=== PATIENT | female | born 1980 | race Caucasian/White ===

== ENCOUNTER 2020-02-21 16:28 | Outpatient (CLI) | payer OTHER, SELFPAY ==
--- NOTE | ~2020-02-21 | US_ITS ---
EXAMINATION: US pelvic complete w TV EXAM DATE: 02/21/2020 17:08 INDICATION: Right lower quadrant pain. TECHNIQUE: Pelvic transabdominal and transvaginal sonogram was performed. There are multiple graysca le and Doppler images available for interpretation. Comparison is made to prior examination from 11/25. FINDINGS: Uterus measures 12.8 x 3.9 x 6.6 cm, and is morphologically normal. Endometrial stripe me asures 11 mm, within normal limits. There are nabothian cysts. There is no free pelvic fluid. Right adnexa: The ovary measures 3.0 x 2.3 x 3.2 cm and is morphologically normal. Ovarian vascular f low confirmed. Left adnexa: The ovary measures 2.3 x 2.5 x 2.7 cm and is morphologically normal. Ovarian vascular fl ow confirmed. IMPRESSION: 1. Unremarkable pelvic ultrasound exam. Reviewed, dictated and finalized at location A.
== END 2020-02-21 16:29 | disposition home or self-care (01) ==
LOC: ANHIMG 16:34
PROVIDERS: PCP Family Medicine; Visit Provider Physician Assistant Medical
DX: R10.31 Right lower quadrant pain (principal)
CPT/HCPCS: 76830; 76856

== ENCOUNTER 2021-01-24 14:28 | Outpatient (CLI) | payer OTHER, SELFPAY ==
--- NOTE | 2021-01-24 16:41 | WPDPFTINT ---
PFT Interpretation This is a pulmonary function test with spirometry, plethysmography and diffusing capacity. The test was performed and results interpreted in accordance with the 2019 and 2005 ATS/ERS Task Force guidelines respectively using the Global Lung Function Initiative-2012 reference equations. Patient demonstrated good effort and cooperation. Reproducibility criteria were met. The quality of the spirometry maneuver was Grade A. Findings: Spirometry: The contour the inspiratory and expiratory flow tracing are normal. The FVC is 3.01 L, 92% predicted. The FEV1 is 2.54 L, 94% predicted. The FEV1: FVC ratio was 84%. Plethysmography: The total lung capacity is 3.87 L, 84% predicted. Functional residual capacity is 1.13 L, 45% predicted. The residual volume is 0.86 L, 59% predicted. Diffusing capacity the absolute diffusion capacity is 18.8, 84% predicted. Diffusing capacity corrected for alveolar volume is 4.80, 98% predicted. Impression: The spirometry is normal without evidence of an obstructive abnormality. There is reduction in the functional residual capacity and residual volume with a normal total lung capacity. This is an abnormal but nonspecific lung volume pattern. The diffusing capacity is normal. There are no prior studies for comparison PFT Procedure Performed PFT Procedure Performed Plethysmography (Lung Vol) Diffusing Cap (DLCO) Spirometry w/o Bronchodil
== END 2021-01-24 14:29 | disposition home or self-care (01) ==
LOC: ANHPFT 14:30
PROVIDERS: PCP Family Medicine; Visit Provider Internal Medicine Cardiovascular Disease
DX: R06.00 Dyspnea, unspecified (principal); Z86.16 Personal history of COVID-19
CPT/HCPCS: 94375; 94726; 94729

== ENCOUNTER 2022-02-05 15:59 | Outpatient (CLI) | payer BC, OTHER, SELFPAY ==
--- NOTE | ~2022-02-05 | US_ITS ---
US soft tissue chest DATE: 02/05/2022 16:20 INDICATION: Left supraclavicular lump TECHNIQUE: High-resolution ultrasound imaging and color flow imaging of the left supraclavicular soft tissues COMPARISON: None FINDINGS: Corresponding to the area of palpable lump in the supraclavicular area is a parallel circum scribed 5.2 x 1.6 x 4.9 cm patella fatty lesion, most consistent with probable soft tissue lipoma. IMPRESSION: Probable left supraclavicular soft tissue lipoma Reviewed, dictated and finalized at Location A. Reviewed, dictated and finalized at location A.
== END 2022-02-05 16:00 | disposition home or self-care (01) ==
LOC: ANHIMG 16:00
PROVIDERS: PCP Family Medicine; Visit Provider Family Medicine
DX: D17.9 Benign lipomatous neoplasm, unspecified (principal)
CPT/HCPCS: 76604

== ENCOUNTER 2022-03-14 16:20 | Outpatient (CLI) | payer BC, OTHER, SELFPAY ==
--- NOTE | ~2022-03-14 | US_ITS ---
EXAMINATION: US pelvic complete w TV DATE: 03/14/2022 17:01 INDICATION: Abnormal uterine bleeding TECHNIQUE: Multiple transabdominal and endovaginal sonographic images of the pelvis were obtained. COMPARISON: 02/21/2020 FINDINGS: The uterus measures 14.1 x 4.3 x 7.0 cm. The endometrial complex measures 10 mm. The right ovary measures 5.1 x 2.4 x 3.6 cm. The left ovary measures 3.9 x 1.9 x 2.9 cm. There is normal vascul ar flow in the ovaries. There is no free fluid in the pelvis. IMPRESSION: 1. No sonographic correlate for the patient's symptoms. Reviewed, dictated and finalized at location F.
== END 2022-03-14 16:21 | disposition home or self-care (01) ==
PROVIDERS: PCP Family Medicine; Visit Provider Physician Assistant
DX: N93.9 Abnormal uterine and vaginal bleeding, unspecified (principal)
CPT/HCPCS: 76830; 76856

== ENCOUNTER 2022-05-15 20:15 | Inpatient (IN) | payer BC, OTHER, SELFPAY ==
[2022-05-15] VITALS (8 sets, daily range): BP systolic 90–129; BP diastolic 63–91; PULSE 95–111; RESP 15–21; TEMP 36.8; O2SAT 97–100
--- NOTE | ~2022-05-15 | CT_ITS ---
EXAMINATION: CT brain wo con DATE: 05/16/2022 10:58 INDICATION: Syncope. Headache. TECHNIQUE: Computed tomography (CT) of the head was performed without intravenous contrast. The mA wa s adjusted according to patient size. Iterative reconstruction technique was employed. The dose-lengt h product was 605.33 mGy-cm. COMPARISON: Head CT 04/17/2009 FINDINGS: There is no intracranial hemorrhage, acute infarction, or abnormal intracranial mass lesion . The ventricles are normal in size. The orbits are normal. There is mild mucosal thickening in the p aranasal sinuses. The mastoid air cells are normal. IMPRESSION: 1. Normal brain. Reviewed, dictated and finalized at location A. IMPRESSION: 1. Normal brain.
--- NOTE | ~2022-05-15 | XR_ITS ---
EXAMINATION: XR chest 2V DATE: 05/15/2022 20:45 INDICATION: Palpitations TECHNIQUE: PA and lateral views of the chest were obtained. COMPARISON: None FINDINGS: The lungs are clear with no focal airspace opacities, pulmonary edema, pleural effusion or pneumothor ax. The cardiomediastinal silhouette is normal. Cholecystectomy clips in right upper quadrant. Mild t horacic spondylosis. IMPRESSION: 1. No acute cardiopulmonary disease. Reviewed, dictated and finalized at location A.
--- NOTE | 2022-05-15 20:23 | ECG_ITS ---
Measurements Intervals [place] Rate: 98 P: 41 VT: 149 QRS: 8 QRSD: 90 T: 12 QT: 335 QTc: 429 Interpretive Statements SINUS RHYTHM BASELINE ARTIFACT NONSPECIFIC T-WAVE ABNORMALITY BORDERLINE ECG NO PREVIOUS ECG AVAILABLE FOR COMPARISON Electronically Signed On 05-16-2022 15:57:47 CDT by Jacob Higuera M.D.
[2022-05-15 20:26] LABS: Glucose Point of Care 156 mg/dl (65-105)
[2022-05-15 21:29] LABS: Add Urine Microscopic? YES; Appearance Urine Cloudy (Clear); Bilirubin Urine Negative (Negative); Blood Urine Negative (Negative); Color Urine Yellow (Yellow); Glucose Urine UA Negative (Negative); Ketones Urine Negative (Negative); Leukocyte Esterase Ur Trace LEU/UL (Negative); Nitrate Urine Positive (Negative); Protein Urine Trace mg/dL (Negative)
[2022-05-15 21:33] LABS: Bacteria Urine Trace /hpf; Mucus Urine Rare /lpf; Squamous Epithelial Cell Urine Many /hpf (Few)
[2022-05-15 21:41] LABS: Prothrombin Time 12.9 Seconds (11.1-14.7)
[2022-05-15 21:42] LABS: Partial Thromboplastin Time 22.3 SECONDS (22.3-36.8)
[2022-05-15 21:43] LABS: Alanine Aminotransferase 16 U/L (6-35); Albumin Level 4.2 g/dL (3.5-5.1); Alkaline Phosphatase 60 U/L (38-126); Anion Gap 10 mmol/L (8-16); Aspartate Amino Transferase 19 U/L (14-36); Bilirubin,Total 0.3 mg/dL (0.2-1.3); Blood Urea Nitrogen 10 mg/dL (7-17); Calcium 8.5 mg/dL (8.4-10.2); Carbon Dioxide 21 mmol/L (22-30); Chloride 103 mmol/L (98-107); Estimated CRCL calculation 73 ml/min; Estimated Glomerular Filt Rate > 60; Glucose 138 mg/dL (65-110); Potassium 3.3 mmol/L (3.4-5.0); Sodium 134 mmol/L (137-145)
[2022-05-15 21:46] LABS: D Dimer 0.33 ug/mL (<0.48)
[2022-05-15 21:55] LABS: Troponin I < 0.012 ng/mL (0.000-0.034)
[2022-05-15 22:16] LABS: Basophils Percent Auto 0.3 % (0.2-1.2); Eosinophils Absolute Auto 0.1 K/mm3 (0-0.3); Eosinophils Percent Auto 1.2 % (0-4.4); Hematocrit 39.9 % (37.0-47.0); Hemoglobin 13.2 g/dL (12.0-15.0); Immature Granulocyte Absolute 0.03 K/mm3 (0.00-0.031); Immature Granulocyte Percent A 0.3 % (0-0.5); Lymphocytes Absolute Auto 0.83 K/mm3 (0.9-3.2); Lymphocytes Percent Auto 9.4 % (18.3-44.2); Mean Corpuscular HGB Conc 33.1 g/dl (32-36); Mean Corpuscular Hemoglobin 30.9 pg (26-34); Mean Corpuscular Volume 93.4 fl (80-100); Mean Platelet Volume 10.7 fl (7.4-10.4); Monocytes Absolute Auto 0.7 K/mm3 (0.1-0.6); Monocytes Percent Auto 7.5 % (2.6-8.5); Neutrophils Absolute Auto 7.2 K/mm3 (1.3-6.7); Neutrophils Percent Auto 81.3 % (45.5-73.1); Platelet Count Result 229 k/mm3 (150-375); Red Blood Count 4.27 M/mm3 (4.2-5.4); Red Cell Distribution Width 12.9 % (11.5-14.5); White Blood Count 8.8 K/mm3 (4.5-10.0)
[2022-05-15] MEDS: SODIUM CHLORIDE 0.9% IV 1,000 ML 999 ML IV CONT (22:30)
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
[2022-05-15 23:35] LABS: Troponin I < 0.012 ng/mL (0.000-0.034)
[2022-05-15] MEDS: KETOROLAC 30 MG/ML VIAL (*BKC) IV PUSH (23:42)
[2022-05-15 23:56] LABS: SARS-CoV-2 RNA PCR Negative
[2022-05-16] VITALS (15 sets, daily range): BP systolic 96–115; BP diastolic 56–80; PULSE 56–92; RESP 17–20; TEMP 36.3–37.1; O2SAT 97–100; BMI 33.1
--- NOTE | 2022-05-16 | ECHO_ITS ---
Patient Info Name: Yolanda Holder Age: 41 years : 1980 Gender: Female Ht: 60 in Wt: 169 lbs BSA: 1.84 m2 HR: 75 bpm BP: 101 / 66 mmHg Heart Rhythm: Sinus Rhythm Technical Quality: Fair Exam Date: 05/16/2022 8:45 AM Exam Location: [facility] Pulmonary Patient Status: Outpatient Admit Date: 05/15/2022 Staff Ordering Physician: Jeremy Hernández DO Asset Protection Assistant: Valerie Sloan RDCS Attending Provider: Jeremy Hernández DO Exam Type: CA echo doppler color flow Study Info Indications R55 - Syncope and collapse Complete two-dimensional, color flow and Doppler transthoracic echocardiogram is performed. Summary 1. Complete two-dimensional, color flow and Doppler transthoracic echocardiogram is performed. 2. The transthoracic echocardiogram is normal by two-dimensional, color flow imaging, and Doppler interrogation. Left Ventricle Left ventricular chamber dimension is normal. Left ventricular systolic function is normal, estimated at 65-70%. The left ventricular diastolic function is normal. Right Ventricle Right ventricular chamber dimension is normal. Left Atria Left atrial chamber dimension is normal. Right Atria Right atrial chamber dimension is normal. Aortic Valve The aortic valve is normal. Pulmonic Valve The pulmonic valve is normal. Mitral Valve The mitral valve has normal leaflets. Tricuspid Valve The tricuspid valve leaflets are normal. There is trace tricuspid valve regurgitation. Pericardium/Pleural The pericardium appears normal. Aorta The aortic root size at the sinus of Valsalva is normal. Left Ventricular Outflow Tract Name Value Normal LVOT 2D LVOT Diameter 2.0 cm LVOT Doppler LVOT Peak Gradient 4 mmHg LVOT Mean Gradient 2 mmHg LVOT VTI 22 cm LVOT VTI/AV VTI Ratio 0.7 LVOT Stroke Volume 72 ml LVOT CO 4.3 l/min LVOT CI 2.5 l/min/m2 Pulmonic Valve Name Value Normal RVOT Doppler RVOT Peak Gradient 1 mmHg PV Doppler PV Peak Gradient 5 mmHg Mitral Valve Name Value Normal MV Doppler MV Decel Lanier 342 cm/s2 MV PHT 75 ms MV Area (PHT) 2.9 cm2 4.0-5.0 MV Diastolic Function
--- NOTE | 2022-05-16 01:12 | ADMGEN ---
This patient, Yolanda Holder, was admitted to [facility] Surg Room 304-02. Patient/family oriented to hospital policies and general routines including ID bracelet, bed and alarms, visiting hours, pain management, procedures, bathroom and other care routines, personal items, smoking policy, room service/diet, and visiting hours. Information on how to activate the Rapid Response Team has been discussed. Patient/Family are encouraged to report perceived risks to care and to ask questions if they do not understand what they are told or what they should do.
[2022-05-16] MEDS: SODIUM CHLORIDE 0.9% IV 1,000 ML 100 ML IV CONT (01:40)
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
[2022-05-16 02:33] LABS: Troponin I < 0.012 ng/mL (0.000-0.034)
[2022-05-16] MEDS: ZONISAMIDE 100 MG CAPSULE 400 MG PO ×2 (02:55→20:39)
[2022-05-16] MEDS: POTASSIUM CHLORIDE 20 MEQ PACKET (FOR LIQUID) 40 MEQ PO (02:58)
[2022-05-16 06:43] LABS: Basophils Percent Auto 0.5 % (0.2-1.2); Eosinophils Absolute Auto 0.1 K/mm3 (0-0.3); Eosinophils Percent Auto 1.7 % (0-4.4); Hemoglobin 12.2 g/dL (12.0-15.0); Immature Granulocyte Absolute 0.02 K/mm3 (0.00-0.031); Immature Granulocyte Percent A 0.3 % (0-0.5); Lymphocytes Absolute Auto 1.54 K/mm3 (0.9-3.2); Lymphocytes Percent Auto 23.2 % (18.3-44.2); Mean Corpuscular Volume 94.1 fl (80-100); Mean Platelet Volume 10.7 fl (7.4-10.4); Monocytes Absolute Auto 0.7 K/mm3 (0.1-0.6); Monocytes Percent Auto 10.9 % (2.6-8.5); Neutrophils Absolute Auto 4.2 K/mm3 (1.3-6.7); Neutrophils Percent Auto 63.4 % (45.5-73.1); Platelet Count Result 231 k/mm3 (150-375); Red Blood Count 3.93 M/mm3 (4.2-5.4); Red Cell Distribution Width 12.9 % (11.5-14.5); White Blood Count 6.6 K/mm3 (4.5-10.0)
[2022-05-16 06:54] LABS: Anion Gap 9 mmol/L (8-16); Blood Urea Nitrogen 7 mg/dL (7-17); Calcium 7.9 mg/dL (8.4-10.2); Carbon Dioxide 18 mmol/L (22-30); Chloride 112 mmol/L (98-107); Estimated CRCL calculation 83 ml/min; Estimated Glomerular Filt Rate > 60; Glucose 104 mg/dL (65-110); Sodium 139 mmol/L (137-145)
[2022-05-16 08:27] LABS: Hemoglobin A1C 4.9 % (<5.7)
[2022-05-16] MEDS: ACETAMINOPHEN 325 MG TABLET 650 MG PO (09:45)
--- NOTE | 2022-05-16 10:16 | PM.IMPN ---
Progress Note: A&P Assessment and Plan (1) Syncope: Code(s): R55 - Syncope and collapse Status: Acute Plan # loss of consciousness-syncope versus seizure.? Low suspicion of seizure at this point.? seizure precautions, ct head orthostatics, tele, echocardiogram, tsh is normal, continue to hydrate add antiemetics #h/o seizures-continues zonisamide #hyperglycemia-Hb aic is 4.9 pt is not a DM Subjective Date/time seen: 05/16/22 10:16 41-year-old female past medical history of seizures, concern for TIA 10/2020 after COVID 09/2020, history of murmur, asthma, hiatal hernia.? Presents after an episode of loss of consciousness this afternoon. Pt lost consciousness while at her [employer] practice. Pt feels dizzy and nauseated today. Pt on tele monitor and pt having a echo by the bedside. CXR is negative. Exam Psych: Other: Pt appears tired and weak in bed RRR Chest is clear Abdo soft non tender Legs non edematous Neuro no focal neurological deficits Psych calm relaxed Objective Data Vital Signs Vital Signs: Vital Signs - 24 hr 05/15/22 20:13 05/15/22 20:31 05/15/22 23:18 Temperature 36.8 C Pulse Rate 98 111 H 95 Respiratory Rate 16 15 Blood Pressure 129/70 110/91 H 100/65 Pulse Oximetry 100 100 Oxygen Delivery Room Air 05/15/22 23:19 05/15/22 23:21 05/15/22 22:30 Temperature Pulse Rate 98 111 H 108 H Respiratory Rate 21 H Blood Pressure 102/71 90/63 L 106/73 Pulse Oximetry 99 Oxygen Delivery 05/15/22 22:31 05/15/22 23:10 05/15/22 23:19 Temperature Pulse Rate 104 H 108 H 95 Respiratory Rate 20 21 H 15 Blood Pressure 106/68 106/68 100/65 Pulse Oximetry 98 97 99 Oxygen Delivery 05/16/22 00:20 05/16/22 01:21 05/16/22 00:45 Temperature 36.6 C Pulse Rate 80 84 Respiratory Rate 20 18 Blood Pressure 100/56 L 109/79 Pulse Oximetry 97 99 Oxygen Delivery Room Air 05/16/22 00:00 05/16/22 04:00 05/16/22 06:12 Temperature 36.8 C Pulse Rate 92 59 L 75 Respiratory Rate 17 Blood Pressure 101/66 Pulse Oximetry 97 Oxygen Delivery 05/16/22 08:00 Temperature 36.9 C Pulse Rate 80 Respiratory Rate 20 Blood Pressure 96/70 L Pulse Oximetry 98 Oxygen Delivery Intake/Output Intake/Output: Intake & Output 05/13/22 05/14/22 05/15/22 05/16/22 23:59 23:59 23:59 23:59 Intake Total 1000 Balance 1000 Meds/Results Medications: Active Medications Generic Name Dose Route Start Last Admin Trade Name Freq PRN Reason Stop Dose Admin Acetaminophen 650 mg 05/15/22 23:10 05/16/22 09:45 Acetaminophen 325 Mg Tablet PO 650 mg Q4H PRN Administration Mild Pain (1-3) or Fever Hydrocodone Bitart/Acetaminophen 1 tab 05/15/22 23:10 Hydrocodone/Acetaminophen (*Crx) 5-325 Mg Tablet PO Q4H PRN Pain Rated 4-6 Sodium Chloride 1,000 mls @ 100 mls/hr 05/16/22 00:25 05/16/22 01:40 Normal Saline Iv IV CONT 100 mls/hr .Q10H MALINA Administration Ondansetron HCl 4 mg 05/15/22 23:10 Ondansetron Inj 4 Mg/2 Ml Vial IV PUSH Q4H PRN Nausea Perflutren Lipid Microsphere 0 ml 05/16/22 02:10 Perflutren Lipid Microspheres 1.5 Ml Vial Diluted To 10 Ml Total Volume IV PUSH ONCE PRN adequate visualization Protocol Zonisamide 400 mg 05/16/22 02:15 05/16/22 02:55 Zonisamide 100 Mg Capsule PO 400 mg HS MALINA Administration Radiology Results: ITS Impressions Chest X-Ray 05/15/22 20:47 IMPRESSION: 1. No acute cardiopulmonary disease. Labs Labs: Laboratory Results - last 24 hr 05/15/22 05/15/22 05/15/22 20:23 21:18 21:18 WBC RBC Hgb Hct MCV MCH MCHC RDW Plt Count MPV Immature Gran % (Auto) Neut % (Auto) Lymph % (Auto) [place] % (Auto) Eos % (Auto) Baso % (Auto) Lymph # (Auto) [place] # (Auto) Eos # (Auto) Baso # (Auto) Abs Immat Gran (auto) Abso
--- NOTE | 2022-05-16 12:15 | PM.CNCAR ---
Assessment and Plan Assessment and plan (1) Syncope: Code(s): R55 - Syncope and collapse Status: Acute Plan This is a 41-year-old lady without any previous history of significant cardiac pathology. She has structurally normal heart on echo now and his well as on echo last year when she saw my partner in the office. She had a syncopal episode yesterday and was pre seated by the sense of tachycardia that she felt and heart rate recorded as rapid at 140 according to her Fitbit watch. Obviously be do not have electrocardiogram was rhythm strip recorded at that time. By the time she did have an ECG and done by paramedics it was sinus rhythm/sinus tachycardia. She has not had a syncopal episode previous to this. Since she does not have any structural cardiac abnormalities on echo I believe at this time she is safe to be discharged from the hospital. My partner will see her in follow-up and consider outpatient event monitoring for further evaluation of this. Samuel Al MD [facility] History of Present Illness History of Present Illness Consult date/time: 05/16/22 12:15 Reason For Visit: Palpatations, Syncope Narrative: This is a 41-year-old lady I am seeing at the request of the hospitalist today because she came into the hospital yesterday after experiencing a syncopal episode. She has never had a syncopal episode previous to this that she can recall. The patient was sitting her automobile watching her daughter at [employer] and began to feel unwell. She noticed that she was feeling somewhat lightheaded and that her she was feeling like she was tachycardic. She was wearing a Fitbit watch that reported her heart rate to be as high as 140 beats per minute and then she became somewhat concerned. She stepped out of her car and sat on a bench next to her car and had a syncopal episode after about 8 or 10 minutes of this. She remembers waking up in the ambulance on the way to the hospital. She did not have any fall or injury as there were bystanders that lowered her to the ground. She did not have any chest pain pressure or heaviness when this occurred she did not have any other complaints prior to this event. She has been previous evaluated in our our office by my partner, Dr. Palencia because of a cardiac murmur. Interestingly in the office she did not have a audible cardiac murmur and she had an echocardiogram done last year in 2020 that was essentially unremarkable. The patient's ECG in the field demonstrated sinus rhythm/sinus tachycardia a mild nonspecific ST and T abnormality ECG here in the hospital looks the same. Troponin levels have remained negative. An echocardiogram was done again this morning which I read a short time ago and is also unremarkable. She does provide a history of a seizure disorder and sees a neurologist for follow-up of that. Because of that a CT scan of her head was done earlier this morning as well. She feels well at this time and is visiting her while she eats her lunch. Review of Systems Constitutional: Constitutional: Reports no additional constitutional complaints Eyes: Eyes: Reports no additional eye complaints ENT: Reports system reviewed and no additional complaints, except as documented Cardiovascular: Cardiovascular: Reports palpitations Respiratory: Respiratory: Reports no additional respiratory complaints Gastrointestinal: Gastrointestinal: Reports no additional gastrointestinal complaints Musculoskeletal: Musculoskeletal: Reports no additional musculoskeletal complaints Integumentary/Breasts: Skin/Breast: Reports system reviewed and no additional complaints, except as docu Neurologic: Reports as per HPI Endocrine: Endocrine: Reports no additional endocrine complaints Hematologic/Lymphatic: Hematologic/Lymphatic: Reports no additional hematologic/lymphatic complaints Allergic/Immunologic: Allergic/Immunologic: Reports no additional allergic/immunologic c
[2022-05-17] VITALS (16 sets, daily range): BP systolic 93–124; BP diastolic 54–79; PULSE 55–93; RESP 17–20; TEMP 36.6–37.4; O2SAT 98–100
[2022-05-17 06:28] LABS: Basophils Percent Auto 0.5 % (0.2-1.2); Eosinophils Absolute Auto 0.2 K/mm3 (0-0.3); Eosinophils Percent Auto 2.7 % (0-4.4); Hematocrit 39.2 % (37.0-47.0); Hemoglobin 12.8 g/dL (12.0-15.0); Immature Granulocyte Absolute 0.01 K/mm3 (0.00-0.031); Immature Granulocyte Percent A 0.2 % (0-0.5); Lymphocytes Absolute Auto 2.08 K/mm3 (0.9-3.2); Lymphocytes Percent Auto 31.5 % (18.3-44.2); Mean Corpuscular HGB Conc 32.7 g/dl (32-36); Mean Corpuscular Hemoglobin 31.1 pg (26-34); Mean Corpuscular Volume 95.4 fl (80-100); Mean Platelet Volume 10.4 fl (7.4-10.4); Monocytes Absolute Auto 0.6 K/mm3 (0.1-0.6); Monocytes Percent Auto 9.4 % (2.6-8.5); Neutrophils Absolute Auto 3.7 K/mm3 (1.3-6.7); Neutrophils Percent Auto 55.7 % (45.5-73.1); Platelet Count Result 230 k/mm3 (150-375); Red Blood Count 4.11 M/mm3 (4.2-5.4); Red Cell Distribution Width 13.1 % (11.5-14.5); White Blood Count 6.6 K/mm3 (4.5-10.0)
[2022-05-17 07:13] LABS: Anion Gap 8 mmol/L (8-16); Blood Urea Nitrogen 9 mg/dL (7-17); Calcium 8.1 mg/dL (8.4-10.2); Carbon Dioxide 20 mmol/L (22-30); Chloride 110 mmol/L (98-107); Estimated CRCL calculation 73 ml/min; Estimated Glomerular Filt Rate > 60; Glucose 88 mg/dL (65-110); Potassium 3.8 mmol/L (3.4-5.0); Sodium 138 mmol/L (137-145)
--- NOTE | 2022-05-17 09:56 | PM.IMPN ---
Progress Note: A&P Assessment and Plan (1) Syncope: Code(s): R55 - Syncope and collapse Status: Acute Assessment and Plan: Workup is in progress. Cardiology consult noted. Plan # loss of consciousness-syncope versus seizure.? Low suspicion of seizure at this point.? seizure precautions, ct head orthostatics, tele, echocardiogram, tsh is normal, continue to hydrate add antiemetics #h/o seizures-continues zonisamide #hyperglycemia-Hb aic is 4.9 pt is not a DM Additional Plan 05/17/2022 Plan is to continue current treatment present time. Cardiology consult noted. Monitor patient closely. Subjective Date/time seen: 05/17/22 09:56 Interval history: Patient was seen during the morning rounds today. Patient has couple episodes of palpitations overnight. Patient denies any loss of consciousness. Patient denies shortness of breath or chest pain. No abdominal pain, nausea, no vomiting. Mood stable. Review of Systems Review of Systems: All systems reviewed & are unremarkable except as noted in HPI and below ( the history and physical examination.) Exam Const: General: comfortable and no acute distress HENMT: Mouth: Yes moist mucous membranes Eyes: General: appearance normal, both eyes and all related structures Pupils: Equal, round and reactive pupils present EOM: EOMs intact bilaterally Neck: Neck: supple Other: negative bruit Resp: Effort & Inspection: normal respiratory effort Auscultation: clear to auscultation bilaterally Cardio: Rate: regular rate Rhythm: regular rhythm Other: no gallop or murmur appreciated GI: Auscultation: normal bowel sounds Other: nontender, nondistended Skin: General skin exam: normal color Neuro: Cranial nerves: Yes Equal, round and reactive pupils present Speech: normal speech Motor exam (neuro): 5/5 motor strength present throughout Sensory Exam: normal sensation Extrem: General: normal to inspection Psych: Mental Status: mental status grossly normal Affect: normal affect Other: Pt appears tired and weak in bed RRR Chest is clear Abdo soft non tender Legs non edematous Neuro no focal neurological deficits Psych calm relaxed Objective Data Vital Signs Vital Signs: Vital Signs - 24 hr 05/16/22 12:00 05/16/22 16:00 05/16/22 16:00 Temperature 37.1 C Pulse Rate 88 71 80 Respiratory Rate 20 Blood Pressure 104/68 Pulse Oximetry 98 Oxygen Delivery 05/16/22 19:35 05/16/22 19:35 05/16/22 21:42 Temperature 36.8 C Pulse Rate 56 L Respiratory Rate 17 Blood Pressure 111/62 115/75 112/63 Pulse Oximetry 100 Oxygen Delivery 05/16/22 20:50 05/16/22 20:53 05/16/22 20:56 Temperature 36.7 C 36.4 C L 36.3 C L Pulse Rate 56 L 64 65 Respiratory Rate 18 18 17 Blood Pressure 106/80 107/68 114/71 Pulse Oximetry 99 100 100 Oxygen Delivery 05/16/22 20:00 05/16/22 20:00 05/17/22 00:00 Temperature Pulse Rate 56 L 65 55 L Respiratory Rate 17 Blood Pressure Pulse Oximetry 100 Oxygen Delivery Room Air 05/17/22 04:00 05/17/22 05:58 05/17/22 08:51 Temperature 36.6 C Pulse Rate 65 76 Respiratory Rate 17 Blood Pressure 99/58 L Pulse Oximetry 100 99 Oxygen Delivery Room Air Intake/Output Intake/Output: Intake & Output 05/14/22 05/15/22 05/16/22 05/17/22 23:59 23:59 23:59 23:59 Intake Total 2320 Output Total 700 Balance 2320 -700 Meds/Results Medications: Active Medications Generic Name Dose Route Start Last Admin Trade Name Clarkeq PRN Reason Stop Dose Admin Acetaminophen 650 mg 05/15/22 23:10 05/16/22 09:45 Acetaminophen 325 Mg Tablet PO 650 mg Q4H PRN Administration Mild Pain (1-3) or Fever Hydrocodone Bitart/Acetaminophen 1 tab 05/15/22 23:10 Hydrocodone/Acetaminophen (*Crx) 5-325 Mg Tablet PO Q4H PRN Pain Rated 4-6 Metoclopramide HCl 5 mg 05/16/22 17:18 Metoclopramide Hcl Inj 10 Mg/2 Ml Vial IV
--- NOTE | 2022-05-17 10:28 | PM.PNCARD ---
Progress Note: A&P Assessment and Plan (1) Syncope: Code(s): R55 - Syncope and collapse Status: Acute Plan Palpitations with documented SVT on telemetry. Believe this is most likely atypical atrial flutter. I am going to start her on flecainide today 100 mg q.12 hours and observe for at least until tomorrow. She has no history of coronary disease LV dysfunction and has had 2 echoes in the last year which are unremarkable. She should be at very low risk for proarrythmia Samuel Al MD [facility] Subjective Date/time seen: Date of service: 05/17/22 10:28 Interval history: Follow-up visit in this 41-year-old lady with: Episodes intermittent tachycardia/palpitations. One associated with out of hospital syncope with which she spontaneously recovered. This morning the patient had 2 episodes of abrupt tachycardia noted on telemetry. They lasted a couple of minutes each, not long enough to get an EKG done. Review of telemetry is most consistent with atypical atrial flutter. Could also be another type of SVT as well. I am going to initiate antiarrhythmic therapy for this reason at this time. She is asymptomatic currently. When she is in sinus rhythm she tends to be somewhat bradycardic. Exam Const: General: comfortable and no acute distress HENMT: Mouth: Yes moist mucous membranes Eyes: Sclera: sclerae normal Neck: Neck: supple and no JVD Thyroid: thyroid normal Resp: Effort & Inspection: normal respiratory effort Auscultation: clear to auscultation bilaterally Cardio: Rate: regular rate Rhythm: regular rhythm Other: No murmur no gallop GI: GI Palp: Yes Soft to palpation Auscultation: normal bowel sounds Skin: General skin exam: normal color Neuro: Other: Alert oriented normal mentation Extrem: General: normal to inspection Objective Data Vital Signs Vital Signs: Vital Signs - 24 hr 05/16/22 12:00 05/16/22 16:00 05/16/22 16:00 Temperature 37.1 C Pulse Rate 88 71 80 Respiratory Rate 20 Blood Pressure 104/68 Pulse Oximetry 98 Oxygen Delivery 05/16/22 19:35 05/16/22 19:35 05/16/22 21:42 Temperature 36.8 C Pulse Rate 56 L Respiratory Rate 17 Blood Pressure 111/62 115/75 112/63 Pulse Oximetry 100 Oxygen Delivery 05/16/22 20:50 05/16/22 20:53 05/16/22 20:56 Temperature 36.7 C 36.4 C L 36.3 C L Pulse Rate 56 L 64 65 Respiratory Rate 18 18 17 Blood Pressure 106/80 107/68 114/71 Pulse Oximetry 99 100 100 Oxygen Delivery 05/16/22 20:00 05/16/22 20:00 05/17/22 00:00 Temperature Pulse Rate 56 L 65 55 L Respiratory Rate 17 Blood Pressure Pulse Oximetry 100 Oxygen Delivery Room Air 05/17/22 04:00 05/17/22 05:58 05/17/22 08:51 Temperature 36.6 C Pulse Rate 65 76 Respiratory Rate 17 Blood Pressure 99/58 L Pulse Oximetry 100 99 Oxygen Delivery Room Air Intake/Output Intake/Output: Intake & Output 05/14/22 05/15/22 05/16/22 05/17/22 23:59 23:59 23:59 23:59 Intake Total 2320 Output Total 700 Balance 2320 -700 Meds/Results Medications: Active Medications Generic Name Dose Route Start Last Admin Trade Name Freq PRN Reason Stop Dose Admin Acetaminophen 650 mg 05/15/22 23:10 05/16/22 09:45 Acetaminophen 325 Mg Tablet PO 650 mg Q4H PRN Administration Mild Pain (1-3) or Fever Hydrocodone Bitart/Acetaminophen 1 tab 05/15/22 23:10 Hydrocodone/Acetaminophen (*Crx) 5-325 Mg Tablet PO Q4H PRN Pain Rated 4-6 Flecainide Acetate 100 mg 05/17/22 10:30 Flecainide Acetate 100 Mg Tablet PO Q12HR MALINA Heparin Sodium (Porcine) 5,000 units 05/17/22 21:00 Heparin Sodium 5,000 Units/Ml Vial SUB-Q Q12HR MALINA Metoclopramide HCl 5 mg 05/16/22 17:18 Metoclopramide Hcl Inj 10 Mg/2 Ml Vial IV PUSH Q6HR PRN nausea Ondansetron HCl 4 mg 05/15/22 23:10 Ondansetron Inj 4 Mg/2 Ml Vial IV PUSH Q4H PRN Nausea Perflutren
[2022-05-17] MEDS: FLECAINIDE ACETATE 100 MG TABLET PO ×2 (12:52→21:09)
[2022-05-17] MEDS: ACETAMINOPHEN 325 MG TABLET 650 MG PO (12:57)
[2022-05-17] MEDS: ZONISAMIDE 100 MG CAPSULE 400 MG PO (21:09)
[2022-05-17] MEDS: HEPARIN SODIUM 5,000 UNITS/ML VIAL 5000 UNITS SUB-Q (21:10)
[2022-05-18] VITALS (14 sets, daily range): BP systolic 98–118; BP diastolic 63–88; PULSE 56–87; RESP 17–20; TEMP 36.6–36.9; O2SAT 97–100
[2022-05-18] MEDS: FLECAINIDE ACETATE 100 MG TABLET PO ×2 (08:15→20:33)
[2022-05-18] MEDS: HEPARIN SODIUM 5,000 UNITS/ML VIAL 5000 UNITS SUB-Q ×2 (08:16→20:32)
--- NOTE | 2022-05-18 08:55 | PM.IMPN ---
Progress Note: A&P Assessment and Plan (1) Syncope: Code(s): R55 - Syncope and collapse Status: Acute Assessment and Plan: Workup is in progress. Cardiology consult noted. (2) Cardiac arrhythmia: Code(s): I49.9 - Cardiac arrhythmia, unspecified Status: Acute Assessment and Plan: patient was started on flecainide yesterday. Patient's symptoms improved. Will continue current treatment. (3) UTI (urinary tract infection): Code(s): N39.0 - Urinary tract infection, site not specified Status: Acute Assessment and Plan: Patient is completely asymptomatic at present time. Will hold off on antibiotic. Urine culture is pending. Plan # loss of consciousness-syncope versus seizure.? Low suspicion of seizure at this point.? seizure precautions, ct head orthostatics, tele, echocardiogram, tsh is normal, continue to hydrate add antiemetics #h/o seizures-continues zonisamide #hyperglycemia-Hb aic is 4.9 pt is not a DM Additional Plan 05/18/2022 Plan is to continue current treatment present time. Cardiology consult noted. Monitor patient closely. Patient urine culture is pending. Will continue to hold off on antibiotics, at present time patient is completely asymptomatic. Subjective Date/time seen: 05/18/22 08:55 Patient was seen during the morning rounds today. No palpitation. No dizziness. No shortness of breath. Chest pain. Feeling much better. No abdominal pain, no nausea, no vomiting. Mood stable. Review of Systems Review of Systems: All systems reviewed & are unremarkable except as noted in HPI and below ( the history and physical examination.) Exam Const: General: comfortable and no acute distress HENMT: Mouth: Yes moist mucous membranes Eyes: General: appearance normal, both eyes and all related structures Pupils: Equal, round and reactive pupils present EOM: EOMs intact bilaterally Neck: Neck: supple Other: negative bruit Resp: Effort & Inspection: normal respiratory effort Auscultation: clear to auscultation bilaterally Cardio: Rate: regular rate Rhythm: regular rhythm Other: no gallop or murmur appreciated GI: Auscultation: normal bowel sounds Other: nontender, nondistended Skin: General skin exam: normal color Neuro: Cranial nerves: Yes Equal, round and reactive pupils present Speech: normal speech Motor exam (neuro): 5/5 motor strength present throughout Sensory Exam: normal sensation Extrem: General: normal to inspection Psych: Mental Status: mental status grossly normal Affect: normal affect Other: Pt appears tired and weak in bed RRR Chest is clear Abdo soft non tender Legs non edematous Neuro no focal neurological deficits Psych calm relaxed Objective Data Vital Signs Vital Signs: Vital Signs - 24 hr 05/17/22 12:52 05/17/22 12:00 05/17/22 16:00 Temperature Pulse Rate 72 75 65 Respiratory Rate Blood Pressure Pulse Oximetry Oxygen Delivery 05/17/22 14:00 05/17/22 19:06 05/17/22 19:07 Temperature 37.4 C Pulse Rate 81 Respiratory Rate 20 Blood Pressure 107/66 93/54 L 107/69 Pulse Oximetry 100 Oxygen Delivery 05/17/22 20:05 05/17/22 20:08 05/17/22 20:11 Temperature 36.7 C 36.7 C 36.9 C Pulse Rate 76 78 92 Respiratory Rate 18 18 18 Blood Pressure 111/75 115/79 124/76 Pulse Oximetry 99 99 99 Oxygen Delivery 05/17/22 21:40 05/17/22 20:00 05/17/22 20:00 Temperature 36.9 C Pulse Rate 79 93 Respiratory Rate 17 Blood Pressure 114/75 Pulse Oximetry 98 Oxygen Delivery Room Air 05/18/22 00:00 05/18/22 04:00 05/18/22 05:43 Temperature 36.6 C Pulse Rate 69 56 L 70 Respiratory Rate 18 Blood Pressure 118/70 Pulse Oximetry 100 Oxygen Delivery 05/18/22 08:15 Temperature Pulse Rate 74 Respiratory Rate Blood Pressure Pulse Oximetry Oxygen Delivery Intake/Output Intake/Output: Intake & Output 08
--- NOTE | 2022-05-18 09:09 | PM.PNCARD ---
Progress Note: A&P Assessment and Plan (1) Atypical atrial flutter: Code(s): I48.4 - Atypical atrial flutter Status: Acute Plan Atypical atrial flutter lady with otherwise no structural cardiac abnormalities. Started on flecainide for control of her arrhythmia. As she has no structural cardiac abnormalities I do not believe she needs to stay in the hospital any longer from my perspective. Patient states that the hospitalist team already has seen her this morning and plans to keep her until tomorrow at least. Obviously that is fine with me. I will insure that she has follow-up scheduled with our office within the next 2-3 weeks for follow-up of this. Samuel Al MD [facility] Subjective Date/time seen: Date of service: 05/18/22 09:09 Interval history: Follow-up visit in this 41-year-old lady with: Episodes of tachycardia palpitations admission prompted by an episode such as this that was associated with syncope. In the hospital on telemetry paroxysmal rapid SVT has been identified most consistent with atypical atrial flutter. Patient started on antiarrhythmic therapy with flecainide yesterday. Echocardiogram remains unremarkable Exam Const: General: comfortable and no acute distress Other: Pleasant lady comfortable cooperative no distress no significant symptoms since being started on flecainide yesterday has had a total of 3 doses as of this morning HENMT: Mouth: Yes moist mucous membranes Eyes: Sclera: sclerae normal Neck: Neck: supple and no JVD Resp: Effort & Inspection: normal respiratory effort Auscultation: clear to auscultation bilaterally Cardio: Rate: regular rate Rhythm: regular rhythm GI: GI Palp: Yes Soft to palpation Auscultation: normal bowel sounds Skin: General skin exam: normal color Extrem: General: normal to inspection Objective Data Vital Signs Vital Signs: Vital Signs - 24 hr 05/17/22 12:52 05/17/22 12:00 05/17/22 16:00 Temperature Pulse Rate 72 75 65 Respiratory Rate Blood Pressure Pulse Oximetry Oxygen Delivery 05/17/22 14:00 05/17/22 19:06 05/17/22 19:07 Temperature 37.4 C Pulse Rate 81 Respiratory Rate 20 Blood Pressure 107/66 93/54 L 107/69 Pulse Oximetry 100 Oxygen Delivery 05/17/22 20:05 05/17/22 20:08 05/17/22 20:11 Temperature 36.7 C 36.7 C 36.9 C Pulse Rate 76 78 92 Respiratory Rate 18 18 18 Blood Pressure 111/75 115/79 124/76 Pulse Oximetry 99 99 99 Oxygen Delivery 05/17/22 21:40 05/17/22 20:00 05/17/22 20:00 Temperature 36.9 C Pulse Rate 79 93 Respiratory Rate 17 Blood Pressure 114/75 Pulse Oximetry 98 Oxygen Delivery Room Air 05/18/22 00:00 05/18/22 04:00 05/18/22 05:43 Temperature 36.6 C Pulse Rate 69 56 L 70 Respiratory Rate 18 Blood Pressure 118/70 Pulse Oximetry 100 Oxygen Delivery 05/18/22 08:15 Temperature Pulse Rate 74 Respiratory Rate Blood Pressure Pulse Oximetry Oxygen Delivery Intake/Output Intake/Output: Intake & Output 05/15/22 05/16/22 05/17/22 05/18/22 23:59 23:59 23:59 23:59 Intake Total 2320 1920 200 Output Total 1700 400 Balance 2320 220 -200 Meds/Results Medications: Active Medications Generic Name Dose Route Start Last Admin Trade Name Freq PRN Reason Stop Dose Admin Acetaminophen 650 mg 05/15/22 23:10 05/17/22 12:57 Acetaminophen 325 Mg Tablet PO 650 mg Q4H PRN Administration Mild Pain (1-3) or Fever Hydrocodone Bitart/Acetaminophen 1 tab 05/15/22 23:10 Hydrocodone/Acetaminophen (*Crx) 5-325 Mg Tablet PO Q4H PRN Pain Rated 4-6 Flecainide Acetate 100 mg 05/17/22 10:30 05/18/22 08:15 Flecainide Acetate 100 Mg Tablet PO 100 mg Q12HR MALINA Administration Heparin Sodium (Porcine) 5,000 units 05/17/22 21:00 05/18/22 08:16 Heparin Sodium 5,000 Units/Ml Vial SUB-Q 5,000 units Q12HR MALINA Administration Metoclopramide HCl 5 mg 05/16/22 17:18 [place]
[2022-05-18] MEDS: ZONISAMIDE 100 MG CAPSULE 400 MG PO (20:32)
[2022-05-19] VITALS (8 sets, daily range): BP systolic 102–114; BP diastolic 66–73; PULSE 64–96; RESP 14–18; TEMP 36.6–36.9; O2SAT 98–100
[2022-05-19] MEDS: CEFDINIR 300 MG CAPSULE PO (08:31)
[2022-05-19] MEDS: HEPARIN SODIUM 5,000 UNITS/ML VIAL 5000 UNITS SUB-Q (08:31)
[2022-05-19] MEDS: FLECAINIDE ACETATE 100 MG TABLET PO (08:31)
[2022-05-19] MEDS: ASPIRIN 81 MG CHEWABLE TABLET PO (08:31)
--- NOTE | 2022-05-19 12:06 | PM.PNCARD ---
Progress Note: A&P Assessment and Plan (1) Atypical atrial flutter: Code(s): I48.4 - Atypical atrial flutter Status: Acute Assessment and Plan: Atypical atrial flutter identified on telemetry during this hospitalization. Predominantly in sinus rhythm with some runs of A flutter. She has been initiated on flecainide in an attempt to suppress these episodes of atrial flutter. Today I will also add low dose metoprolol to mitigate the risk of the pro-arrhythmic effects of flecainide. She is appropriate for discharge today from a cardiac perspective. Follow up in our office has already been arranged. Subjective Date/time seen: 05/19/22 12:06 Cardiology follow up for syncope, atrial flutter Interval history: Follow-up visit in this 41-year-old lady with: Episodes of tachycardia palpitations admission prompted by an episode such as this that was associated with syncope. In the hospital on telemetry paroxysmal rapid SVT has been identified most consistent with atypical atrial flutter. Patient started on antiarrhythmic therapy with flecainide yesterday. Echocardiogram remains unremarkable Date of service 05/19/2022: Feels palpitations from time to time, notices them more at night when lying down. These episodes resolve spontaneously. No other cardiac complaints. Review of Systems Constitutional: Constitutional: Reports no additional constitutional complaints Eyes: Eyes: Reports no additional eye complaints ENT: Reports system reviewed and no additional complaints, except as documented Cardiovascular: Cardiovascular: Reports palpitations Respiratory: Respiratory: Reports no additional respiratory complaints Gastrointestinal: Gastrointestinal: Reports no additional gastrointestinal complaints Musculoskeletal: Musculoskeletal: Reports no additional musculoskeletal complaints Integumentary/Breasts: Skin/Breast: Reports system reviewed and no additional complaints, except as docu Neurologic: Reports as per HPI Endocrine: Endocrine: Reports no additional endocrine complaints and Reports palpitations Hematologic/Lymphatic: Hematologic/Lymphatic: Reports no additional hematologic/lymphatic complaints Allergic/Immunologic: Allergic/Immunologic: Reports no additional allergic/immunologic complaints Exam Const: General: comfortable and no acute distress Other: Pleasant woman lying comfortably in bed. Comfortable, no acute distress. HENMT: Mouth: Yes moist mucous membranes Eyes: Sclera: sclerae normal Pupils: Equal, round and reactive pupils present Neck: Neck: supple and no JVD Thyroid: thyroid normal Carotids: normal carotid upstroke and no bruits Resp: Effort & Inspection: normal respiratory effort Auscultation: clear to auscultation bilaterally Cardio: Rate: regular rate Rhythm: regular rhythm Other: No murmur no gallop GI: Auscultation: normal bowel sounds Skin: General skin exam: normal color Neuro: Cranial nerves: Yes Equal, round and reactive pupils present Other: Alert oriented normal mentation Extrem: General: normal to inspection Objective Data Vital Signs Vital Signs: Vital Signs - 24 hr 05/18/22 14:00 05/18/22 16:02 05/18/22 16:02 Temperature 36.9 C Pulse Rate 83 Respiratory Rate 20 Blood Pressure 108/74 98/78 L 107/63 Pulse Oximetry 99 Oxygen Delivery 05/18/22 16:00 05/18/22 20:33 05/18/22 20:00 Temperature Pulse Rate 72 72 84 Respiratory Rate Blood Pressure Pulse Oximetry Oxygen Delivery 05/18/22 20:00 05/18/22 22:00 05/18/22 20:00 Temperature 36.7 C 36.7 C Pulse Rate 72 86 86 Respiratory Rate 20 17 17 Blood Pressure 111/88 111/88 Pulse Oximetry 99 97 97 Oxygen Delivery Room Air 05/18/22 20:05 05/18/22 20:10 05/19/22 00:00 Temperature 36.6 C 36.6 C Pulse Rate 74 87 76 Respiratory Rate 18 17 Blood Pressure 114/64 104/72 Pulse Oximetry 98 98 Oxygen Delivery 05/19/22 04:00 0
--- NOTE | 2022-05-19 14:05 | PM.DS ---
DS: Admitting Diagnosis Discharge Date 05/19/22 Admitting Diagnosis Palpitations DS: Discharge Diagnosis Discharge Diagnosis (1) Syncope: Code(s): R55 - Syncope and collapse Status: Acute (2) Atypical atrial flutter: Code(s): I48.4 - Atypical atrial flutter Status: Acute (3) UTI (urinary tract infection): Code(s): N39.0 - Urinary tract infection, site not specified Status: Acute (4) Hyperglycemia: Code(s): R73.9 - Hyperglycemia, unspecified Status: Acute (5) Seizure disorder: Code(s): G40.909 - Epilepsy, unspecified, not intractable, without status epilepticus Status: Acute DS: Summary Hospital Course Reason for hospitalization: 41yo female with seizure disorder here for syncope after developing abnormal heart rhythm. Please see H&P for details Hospital Course: Patient developed acute onset chest pain with a Fitbit noting a heart rate of 140. Patient passed out and had involuntary shaking and EMS was called. Patient was brought to the emergency room for evaluation. EKG showed nonspecific T-wave changes with normal sinus rhythm. Echocardiogram was normal with EF of 65-70%. No structural abnormalities noted. Chest x-ray was clear and CT the brain showed no acute findings. CBC, D-dimer, PT, PTT and LFTs were all normal. Troponin was negative x3. TSH was normal. Potassium slightly low at 3.3 and this was replaced. Glucose was elevated felt to be a stress response. Her A1c was 4.9. Urinalysis was positive nitrates with trace leukocyte esterase and 7-9WBC. COVID was negative. Urine culture growing 100K colonies of E coli and we opted to start treatment even though she was asymptomatic. Cardiology was consulted. Patient was admitted to medical floor on telemetry. Telemetry showed documented SVT that was felt to be atypical atrial flutter. Patient was started on flecainide. She was started on aspirin. Metoprolol was added later. She had clinical improvement. No further episodes. She overall did well and was able to be discharged home on 05/19/2022. Status at Discharge Cognitive/behavioral status at discharge: Stable Time Spent with Patient Time attestation: Total time spent providing and/or coordinating discharge services: 38 minutes Time spent: Greater than 30 minutes Exam Narrative: AF 97.8 114/70 91 18 99% ra Gen - NARD Chest - CTA bilaterally, nml RR CV - RRR S1/S2 Abd - Soft, NT/ND, Positive BS Ext - No pedal edema Neuro - Alert and oriented. Nonfocal exam. Psych - Nml mood and affect Skin - Warm and dry Discharge Plan Discharge Attending physician on discharge: Axel Rangel Consulting providers: Mellissa Novoa Discharging Clinician: Axel Rangel Anticipated Discharge Date/Time: 05/19/22 14:18 Patient Disposition: Home, Self-Care Activity: no driving and as tolerated Diet: regular Discharge Instructions: Please avoid large gathering, wear face coverings in public and practice social distance. Please complete your antibiotic course even if you are starting to feel well. No driving until seen by your Neurologist. Contact your doctor or call 911 and come to the Emergency Room if you have recurrent palpitations, chest pain or other worrisome symptoms. Avoid NSAIDs (ibuprofen, naproxen, Aleve). Tylenol is safe to take. Follow-up with your doctor in 1-2 weeks. Please call for appointment. Follow-up with your Neurologist. Please call for an appointment. Follow-up with Cardiology as arranged. Thank you for using [facility] for your [facility] needs. Patient Instructions: Antibiotic Form, Flecainide (By mouth), Syncope (DC) Stand Alone Forms: General Discharge Information Follow-up/Referrals: Samuel Al MD [Physician] - Call for Appointment Samuel Rich MD [Primary Care Provider] - Call for Appointment Discharge Medications: New flecainide 100 mg Tab
== END 2022-05-19 14:45 | disposition home or self-care (01) | DRG 309 ==
LOC: ANHED 23:19 → ANH3MEDSUR 05-16 00:15
PROVIDERS: Admitting Provider Internal Medicine; Emergency Provider Emergency Medicine; PCP Family Medicine; Visit Provider Internal Medicine
DX: I48.4 Atypical atrial flutter (principal); N39.0 Urinary tract infection, site not specified; G40.909 Epilepsy, unspecified, not intractable, without status epilepticus; B96.20 Unspecified Escherichia coli [E. coli] as the cause of diseases classified elsewhere; R55 Syncope and collapse; Z20.822 Contact with and (suspected) exposure to COVID-19; R73.9 Hyperglycemia, unspecified; J45.909 Unspecified asthma, uncomplicated; K21.9 Gastro-esophageal reflux disease without esophagitis; Z90.49 Acquired absence of other specified parts of digestive tract; Z86.16 Personal history of COVID-19
CPT/HCPCS: 36415; 70450; 71046; 80048; 80053; 81001; 82948; 83036; 84443; 84484; 85025; 85380; 85610; 85730; 87077; 87086; 87186; 93005; 93306; 96361; 96374; 99285; A9270; C9803; G0378; J1644; J1885; J7030; U0003; U0005

== ENCOUNTER 2022-05-29 08:04 | Emergency (ER) | payer BC, OTHER, SELFPAY ==
[2022-05-29] VITALS (27 sets, daily range): BP systolic 98–130; BP diastolic 65–86; PULSE 49–71; RESP 11–23; TEMP 36.7; O2SAT 99–100
--- NOTE | ~2022-05-29 | XR_ITS ---
EXAMINATION: XR chest 2V 05/29/2022 08:44 INDICATION: Left-sided chest pain and burning PROCEDURE: 2 view chest COMPARISON: 05/15/2022 FINDINGS: The lungs are clear. The cardiomediastinal silhouette is within normal limits. There are no pleural effusions. There is no pneumothorax suspected. IMPRESSION: 1: NO ACUTE CARDIOPULMONARY DISEASE. Reviewed, dictated and finalized at location B.
--- NOTE | 2022-05-29 08:08 | ECG_ITS ---
Measurements Intervals [place] Rate: 70 P: 53 RI: 171 QRS: 19 QRSD: 87 T: 6 QT: 379 QTc: 411 Interpretive Statements SINUS RHYTHM ST DEVIATION AND MODERATE T-WAVE ABNORMALITY, CONSIDER ANTERIOR ISCHEMIA [-0.1+ mV T- WAVE IN V3/V4] ABNORMAL ECG COMPARED TO ECG 05/15/2022 20:19:08 NO SIGNIFICANT CHANGES Electronically Signed On 05-29-2022 9:39:50 CDT by Chad Palencia M.D.
[2022-05-29] MEDS: ASPIRIN 81 MG CHEWABLE TABLET 324 MG PO (08:34)
[2022-05-29 08:35] LABS: Basophils Percent Auto 0.3 % (0.2-1.2); Eosinophils Absolute Auto 0.2 K/mm3 (0-0.3); Eosinophils Percent Auto 1.8 % (0-4.4); Hematocrit 41.8 % (37.0-47.0); Hemoglobin 14.2 g/dL (12.0-15.0); Immature Granulocyte Absolute 0.04 K/mm3 (0.00-0.031); Immature Granulocyte Percent A 0.5 % (0-0.5); Lymphocytes Absolute Auto 1.94 K/mm3 (0.9-3.2); Lymphocytes Percent Auto 22.3 % (18.3-44.2); Mean Corpuscular Hemoglobin 31.3 pg (26-34); Mean Corpuscular Volume 92.3 fl (80-100); Mean Platelet Volume 10.7 fl (7.4-10.4); Monocytes Absolute Auto 0.5 K/mm3 (0.1-0.6); Monocytes Percent Auto 6.1 % (2.6-8.5); Platelet Count Result 272 k/mm3 (150-375); Red Blood Count 4.53 M/mm3 (4.2-5.4); Red Cell Distribution Width 12.8 % (11.5-14.5); White Blood Count 8.7 K/mm3 (4.5-10.0)
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
[2022-05-29 08:46] LABS: Prothrombin Time 12.8 Seconds (11.1-14.7)
[2022-05-29 08:47] LABS: Partial Thromboplastin Time 24.8 SECONDS (22.3-36.8)
[2022-05-29 08:54] LABS: Alanine Aminotransferase 16 U/L (6-35); Albumin Level 4.8 g/dL (3.5-5.1); Alkaline Phosphatase 62 U/L (38-126); Anion Gap 9 mmol/L (8-16); Aspartate Amino Transferase 32 U/L (14-36); Bilirubin,Total 0.8 mg/dL (0.2-1.3); Blood Urea Nitrogen 12 mg/dL (7-17); Calcium 8.9 mg/dL (8.4-10.2); Carbon Dioxide 22 mmol/L (22-30); Chloride 108 mmol/L (98-107); Estimated CRCL calculation 73 ml/min; Estimated Glomerular Filt Rate > 60; Glucose 102 mg/dL (65-110); Lipase 89 U/L (23-300); Potassium 4.4 mmol/L (3.4-5.0); Sodium 139 mmol/L (137-145)
[2022-05-29 09:01] LABS: Troponin I 0.015 ng/mL (0.000-0.034)
[2022-05-29] MEDS: SODIUM CHLORIDE 0.9% IV 1,000 ML 999 ML IV CONT (09:09)
--- NOTE | 2022-05-29 09:13 | PC.NURSE ---
Pt to take at home medications that are due at 0900. ED approved of the administration.
[2022-05-29 11:46] LABS: Troponin I < 0.012 ng/mL (0.000-0.034)
== END 2022-05-29 12:48 | disposition home or self-care (01) ==
PROVIDERS: Emergency Provider Emergency Medicine; PCP Family Medicine
DX: R10.13 Epigastric pain (principal); J45.909 Unspecified asthma, uncomplicated; G40.909 Epilepsy, unspecified, not intractable, without status epilepticus; G81.94 Hemiplegia, unspecified affecting left nondominant side; K21.9 Gastro-esophageal reflux disease without esophagitis; K44.9 Diaphragmatic hernia without obstruction or gangrene; Z86.16 Personal history of COVID-19; Z79.82 Long term (current) use of aspirin; R94.31 Abnormal electrocardiogram [ECG] [EKG]
CPT/HCPCS: 36415; 71046; 80053; 83690; 84484; 85025; 85610; 85730; 93005; 96360; 99284; A9270; J7030

== ENCOUNTER → 2023-05-25 10:36 | Outpatient (CLI) | payer BC, OTHER, SELFPAY ==
--- NOTE | ~2023-05-25 | US_ITS ---
EXAMINATION: US renal BI DATE: 05/25/2023 10:53 INDICATION: Renal cyst on MRI TECHNIQUE: Multiple ultrasound grayscale images of the kidneys were obtained. COMPARISON: CT abdomen and pelvis dated 02/04/2013 FINDINGS: The right kidney measures 11.3 x 4.2 x 4.6 cm. The left kidney measures 10.8 x 4.3 x 5.2 cm. The kidn eys demonstrate normal echogenicity. 1.8 cm exophytic hypoechoic lesion at the inferior right kidney. There appears be a curvilinear echogenic posterior wall suggestive of a cyst however no posterior ac oustic enhancement is identified for more definitive determination. There is no hydronephrosis in eit her kidney. No stones identified. The bladder is normal. Anteverted uterus measures 12.0 x 4.4 cm on sagittal imaging with 10 mm thick endometrial complex. IMPRESSION: 1. 1.8 cm exophytic hypoechoic lesion at the inferior right kidney. This could represent the reporte d cyst identified at the right kidney on prior MRI however visualization on ultrasound is insufficien t for definitive determination. Correlate with prior MRI. Reviewed, dictated and finalized at location A. IMPRESSION: 1. 1.8 cm exophytic hypoechoic lesion at the inferior right kidney. This could represent the reported cyst identified at the right kidney on prior MRI howeve r visualization on ultrasound is insufficient for definitive determination. Cor relate with prior MRI.
== END ==
PROVIDERS: PCP Family Medicine; Visit Provider Family Medicine
DX: N28.1 Cyst of kidney, acquired (principal)
CPT/HCPCS: 76775

== ENCOUNTER 2024-11-22 08:42 | Outpatient (CLI) | payer BC, SELFPAY ==
--- NOTE | ~2024-11-22 | XR_ITS ---
Lumbosacral Spine: AP and lateral views Clinical History: Pain Findings: The normal lordotic curve is maintained. The vertebral bodies and posterior elements are i ntact. There is mild degenerative disc change and mild facet arthropathy and lumbar spine. The sacro iliac joints are normally outlined. Impression: Mild degenerative spondylosis, as above. Reviewed, dictated and finalized at location . FIELD SERVICE TECHNICIAN Impression: Mild degenerative spondylosis, as above.
--- NOTE | ~2024-11-22 | XR_ITS ---
AP view of the pelvis and AP and lateral views of the left hip Clinical history: Pain Findings: No acute fracture or dislocation is seen. Osseous alignment is anatomic. There is mild dege nerative change of both hip joints. Soft tissues are unremarkable. Impression: Mild degenerative change of both hip joints. Reviewed, dictated and finalized at location . AL MACHINE OPERATOR Impression: Mild degenerative change of both hip joints.
== END 2024-11-22 08:43 | disposition home or self-care (01) ==
PROVIDERS: PCP Nurse Practitioner Family; Visit Provider Nurse Practitioner Family
DX: M16.0 Bilateral primary osteoarthritis of hip (principal); M47.896 Other spondylosis, lumbar region
CPT/HCPCS: 72100; 73502